=== PATIENT | male | born 1970 | race Caucasian/White ===

== ENCOUNTER 2017-12-04 08:45 | Day surgery (SDC) | payer OTHER ==
[~2017-12-04] VITALS: Ht 188 cm; Wt 163.6 kg
[~2017-12-04 08:45] MED LIST: 0.9% SODIUM CHLORIDE 10 ML SYRINGE IVP PRN; ASPI-1182 PO; METO50 PO; METOPROLOL TARTRATE 50 MG TABLET PO PRN
[2017-12-04] MEDS ORDERED: IOVERSOL 350 MG/ML 150 ML VIAL ONE (09:31)
[2017-12-04] MEDS ORDERED: METOPROLOL TARTRATE 50 MG TABLET ONE (09:50)
[2017-12-04 09:56] LABS: ANION GAP 9 mmol/L (8-16); CALCIUM, TOTAL 8.1 mg/dL (8.8-10.5); CARBON DIOXIDE 26 mmol/L (22-29); CHLORIDE 104 mmol/L (98-107); CREATININE 0.69 mg/dL (0.60-1.30); GLOMERULAR FILTR. RATE CALC > 60 mL/min (>60); GLUCOSE,RANDOM 120 mg/dL (70-110); SODIUM SERUM 139 mmol/L (136-145); UREA NITROGEN, BLOOD 11 mg/dL (7-18)
[2017-12-04] MEDS ORDERED: METOPROLOL TARTRATE 5 MG/5 ML VIAL IVP ONE ×2 (10:50→11:31)
[2017-12-04] MEDS ORDERED: METOPROLOL TARTRATE 5 MG/5 ML VIAL ONE ×2 (10:52→10:57)
[2017-12-04] MEDS ORDERED: NITROGLYCERIN 400 MCG/SUBLINGUAL SPRAY 4.9 GM BOTTLE SL ONE (10:57)
== END 2017-12-04 12:00 | disposition home or self-care (01) ==
LOC: SURGERY 08:45 → EDSTATUS 10:00 → SURGERY 12:00
PROVIDERS: ATTEND Internal Medicine Cardiovascular Disease
DX: R07.9 Chest pain, unspecified (principal); Z79.82 Long term (current) use of aspirin; Z79.899 Other long term (current) drug therapy
CPT/HCPCS: 36415; 75574; 80048; 93005; J3490; Q9967